=== PATIENT | male | born 1945 | race Caucasian/White ===

== ENCOUNTER → 2017-07-19 | Outpatient (CLI) | payer BC ==
[~2017-07-19] MED LIST: EZET10TA63 PO; OMEG10007 PO; SIMV40TA2 PO
== END | disposition home or self-care (01) ==
LOC: C.RDSM 10:55
PROVIDERS: ATTEND Family Medicine Sports Medicine
DX: M54.5 Low back pain (principal)

== ENCOUNTER → 2017-09-22 | Day surgery (SDC) | payer BC ==
[2017-09-06 07:48] VITALS: Ht 177.8 cm; Wt 109.1 kg
[~2017-09-22] VITALS: Ht 177.8 cm; Wt 109.1 kg
[~2017-09-22] MED LIST changes: +BUPIVACAINE 0.25% 2.5MG/ML PF 10 ML VIAL ONE; +CHOL1000 PO; +GLUC100014 PO; +IOPAMIDOL INJ 61% 15 ML VIAL ONE; +LIDOCAINE HCL 1% MPF 5 ML VIAL ONE; +MULT-506 PO
--- NOTE | 2017-09-22 13:47 | History & Physical Bridge - SC ---
H&P Re-Evaluation Bridge Note: I have examined the patient, reviewed the History & Physical and in the interval since the performance of the History & Physical I have noted the following changes of clinical significance: No changes noted
--- NOTE | 2017-09-22 14:04 | [facility] Post Operative Brief Note ---
Immediate Operative Summary Operative Date Sep 22, 2017. Pre-Operative Diagnosis RIGHT SACROILIITIS Post-Operative Diagnosis RIGHT SACROILIITIS Procedure(s) Performed Right Sacroiliac Joint Injection Surgeon DR. Anatoly CRUZ Electric Organ Assembler Surgeon(s) None Estimated Blood Loss NONE Findings Consistent with Post-Op Diagnosis Specimens NA Drains None Anesthesia Type Local Complication(s) none Disposition Disposition:
--- NOTE | 2017-09-22 14:05 | Discharge Instructions ---
Discharge Instructions Date of Service Sep 22, 2017. Visit Reason for Visit: Sacroiliitis Discharge Discharge Diagnosis / Problem: Low back pain Discharge Goals Goal(s): Decrease discomfort, Improve function Activity Recommendations Activity Limitations: resume your previous activity Anesthesia . Post Anesthesia Instructions: If you have had General Anesthesia or IV Sedation: * Do not drive today. * Resume driving when surgeon permits. * Do not make important decisions or sign legal documents today. * Call surgeon for: 1. Temperature elevations greater than 101 degrees F. 2. Uncontrollable pain. 3. Excessive bleeding. 4. Persistent nausea and vomiting. 5. Medication intolerance (nausea, vomiting or rash). * For nausea and vomiting use only clear liquids such as: tea, soda, bouillon until nausea subsides, then gradually increase diet as tolerated. * If you have any concerns or questions, call your surgeon's office. If physician is unavailable and it is an emergency, call 911 or go to the nearest emergency room. . Diet Recommendations Recommended Home Diet: resume previous diet Procedures Procedures Performed: Right Sacroiliac Joint Injection Pending Studies Studies pending at discharge: no Medical Emergencies . Who to Call and When: Medical Emergencies: If at any time you feel your situation is an emergency, please call 911 immediately. . Non-Emergent Contact Non-Emergency issues call your: Specialist . . "Provider Documentation" section prepared by Torres Hobson. .
[2017-09-22 14:06] VITALS: TEMP 36.7
[2017-09-22 14:29] VITALS: BP 155/89; PULSE 83; O2SAT 94
--- NOTE | 2017-09-22 14:38 | OPERATIVE REPORT ---
DATE OF OPERATION: 09/22/2017 PREOPERATIVE DIAGNOSIS: Right sacroiliitis. POSTOPERATIVE DIAGNOSIS: Same. PROCEDURE: Right sacroiliac joint injection under fluoroscopic guidance. INDICATIONS: The patient is a 72-year-old white male that has localizing pain to the right SI joint following a misstep on a carpet on a hardware floor. He denies any radiating pain down the leg and his examination was consistent with a sacroiliac etiology. He presents today for an SI joint injection under fluoroscopic guidance. PHYSICAL EXAMINATION: Pleasant male seated comfortably. He has point tenderness to palpation of the right SI joint. Unable to do a Eddie maneuver secondary to tightness of the abductor muscle. Positive sacral compression maneuver. Negative seated straight leg raise. CONSENT: Verbal and written consent was obtained from the patient. Risks and benefits were reviewed. Risks include, but are not limited to abscess and allergic reaction. The patient wishes to proceed. DESCRIPTION OF PROCEDURE: The patient was taken back into the special procedures room of [facility], where he was maintained in a prone position. Backside was cleansed with Betadine x3 and a dry sterile dressing was applied. Fluoroscope was used to identify the right SI joint and the overlying skin was anesthetized with 3 mL of lidocaine 1% with a 25-gauge 1-1/2 inch needle. A 25-gauge 3-1/2 inch spinal needle was easily directed into the joint. Isovue-300 contrast confirmed intra-articular uptake, 0.25 mL or less was utilized. He then underwent injection after negative aspiration of 40 mg of Depo-Medrol and 1.5 mL of bupivacaine. Injection was well tolerated. DISPOSITION: 1. The patient was taken out into the discharge recovery area, where he will be discharged home once discharge criteria have been met. 2. Follow up in the [facility] office in 2-4 weeks. I attest to the content of the Intraoperative Record and any orders documented therein. Any exception s are noted below.
== END | disposition home or self-care (01) ==
LOC: X.SURG 12:59
PROVIDERS: ATTEND Physical Medicine & Rehabilitation
DX: M46.1 Sacroiliitis, not elsewhere classified (principal)

== ENCOUNTER 2020-12-13 05:04 | Observation (INO) ==
--- NOTE | 2020-12-13 05:40 | Emergency Department Note ---
Impression & Plan Substernal chest pain ED Provider Note NAME: SINAI SIDDIQUI AGE: 75 SEX: M ARRIVES VIA: Ambulance INFORMANT: Patient ED PROVIDER(S): Syl Flor DO CHIEF COMPLAINT: Chest pain PLAN: [facility] Condition: Stable MEDICAL DECISION MAKING: This is a 75-year-old male patient who awoke at 3 AM with some substernal chest discomfort. The patient describes it as difficulty taking a deep breath because it increases his chest discomfort. He has never had pain like this in the past. EKG was unremarkable and troponin was negative. Chest x-ray showed no evidence of widened mediastinum. CT of the chest was negative for aortic dissection or pulmonary emboli. The patient had gotten no relief of the chest discomfort with sublingual nitroglycerin by EMS. I tried a GI cocktail with the patient which also gave no relief of his discomfort. He did finally get some relief with IV Pepcid and IV fentanyl. I discussed the case with the [facility] and they will evaluate the patient for admission to the hospital for further work-up of this chest discomfort. Triage Nursing notes reviewed and agree with them. Prior medical records reviewed Vital Signs: reviewed and remarkable for hypertension Differential diagnosis: STEMI, GERD, aortic dissection, costochondritis ER treatment provided: GI cocktail IV Pepcid IV fentanyl Diagnostics interpreted by me: ECG: Normal sinus rhythm at 92 with a first-degree AV block. There is no ST segment elevation or signs of ischemia. There is no ectopy. QTC is 4 and 37 ms. Cardiac Monitoring: Normal sinus rhythm at a rate of 90 Laboratory studies: See below Imaging studies: As per my interpretation Portable chest x-ray: No widened mediastinum or significant pulmonary findings. CTA chest: The ascending aortic arch is upper limits of normal measuring 3.8 cm in d iameter. No dissection is seen. The great vessel origins are mildly calcified with no stenosis or dissection. The ascending thoracic aorta is unremarkable. The pulmonary arterial tree is well opacified with contrast. No pulmonary emboli are identified. Small amount of bibasilar subsegmental atelectasis is present. No pneumothorax or pleural effusion is seen. No focal consolidation is identified. The heart is not enlarged. Moderate coronary calcification is present. No pericardial effusion. Mild degenerative changes throughout the thoracic spine. No acute fracture or subluxation. CTA abdomen and pelvis with contrast: There has been previous stent graft repair of abdominal aortic aneurysm with no significant residual aneurysm sac. The graft is widely patent. Mild calcification of widely patent celiac and superior mesenteric arteries. The renal arteries demonstrate approximately 30% stenosis bilaterally but are patent. Bowel loops are nondilated. There is moderate to severe diverticulosis of the left and sigmoid colon. The appendix is normal. No acute inflammatory changes are seen involving the bowel. The liver, gallbladder, pancreas, spleen, adrenal glands and kidneys appear within normal limits. Incidental note is made of fat-containing 5.3 cm umbilical hernia. Mild to moderate degenerative changes in the lower lumbar spine. No acute fracture or subluxation. Consultation(s): None HPI: 75/M arrives for evaluation of substernal chest pain. The patient awoke with pain in the middle of his chest around 3 AM this morning that seem to worsen with deep breathing. There was no associated nausea, vomiting or d iaphoresis. The patient called EMS. Upon their arrival, they administered sublingual nitroglycerin with no relief of his symptoms. Patient denies ever having pain like this in the past. ROS: See above HPI for pertinent positives & negatives. A total of 10 systems reviewed and were otherwise negative. PAST MEDICAL HISTORY:See Below PAST SURGICAL HISTORY:See Below FAMILY HISTORY:See Below SOCIAL HISTORY:See Below HOME MEDICATIONS:See list ALLERGIES:See list VITALS:See Below PHYSICAL EXAMINATION: HEENT: Head - normocephalic and atraumatic Pupils are equal, round, and reactive to light. Extraocular eye muscles are intact, and sclera are anicteric. Nose - moist nasal mucosa without discharge. Mouth - moist buccal mucosa. Oropharynx is nonerythematous and there is no tonsillar exudate or edema noted. Neck: Supple; no JVD, nuchal rigidity, cervical lymphadenopathy, or auscultated bruits. Heart: Regular rate and rhythm. There is a normal S1 and S2 with no murmurs, clicks, or gallops appreciated. Lungs: Clear to auscultation bilaterally with no wheezes, rales, or rhonchi. Abdomen: Soft, completely nontender, nondistended, with good bowel sounds. There are no palpable pulsatile masses or hepatosplenomegaly. There is no guarding, rigidity, or rebound noted. Extremities: 1+ edema. There are easily palpable peripheral pulses. Skin: warm and dry with good turgor and no rashes. ED COURSE: Times/Reassessments: 0510: The patient was evaluated in a 3. A complete history and physical was performed. An order was placed for continuous cardiac monitoring. The patient is in a normal sinus rhythm at a rate of 90. A twelve-lead EKG was obtained as described above. Patient had a portable chest x-ray which showed no evidence of mediastinum. The patient was a hard stick and they had a difficult time obtaining an IV lock. Finally an IV lock was obtained and labs were drawn as above. He went for CT angiogram of the abdomen/pelvis and chest to rule out dissection of the aorta. 0720:I reviewed the results of the CT with the patient. The patient was given a GI cocktail for his substernal chest discomfort. This offered no relief to the discomfort in his chest. The patient was then given IV fentanyl and IV Pepcid. He remains hemodynamically stable. Covid testing was obtained. I discussed the case with Dr. Canchola and he will evaluate for further management. Syl Flor, DO Past Med/Surg History Medical History BPH (benign prostatic hyperplasia) Erectile dysfunction Hyperlipidemia Sleep apnea TRIED AND UNABLE TO USE Ventral hernia Surgical History History of abdominal aortic aneurysm (AAA) repair 08/2013 Hx of colonoscopy Hx of foot surgery LEFT ACHILLES Family History Sister Family history of breast cancer Mother Family history of breast cancer Social History Smoking Status: Former smoker Second Hand Exposure: No; Do You Dip or Chew Tobacco: No; Tobacco Cessation Education Requested by Patient: No Hx Alcohol Use: Yes Alcohol type: wine Hx Substance Use: No Preferred Language: Malawian Communication Ability: Effective Licensed Retail Supervisor Required: No Beliefs That Will Affect Care: None Current Living Situation: Spouse Other Information That Helps Us Care for You: No Feels Safe at Home: Yes Safety Concerns: Feels Safe At This Time Assistive Devices: Glasses Allergies Allergies Allergy/AdvReac Type Severity Reaction Status Date / Time aspirin Allergy Intermediate RASH Verified 12/13/20 08:09 ibuprofen Allergy Intermediate RASH Verified 12/13/20 08:09 naproxen Allergy Mild RASH Verified 12/13/20 08:09 bupropion Allergy Unknown "CAN'T Verified 12/13/20 08:09 RECALL" atorvastatin AdvReac Intermediate ACHES Verified 12/13/20 08:09 lovastatin AdvReac Intermediate ACHES Verified 12/13/20 08:09 Home Meds Home Medications Medication Instructions Recorded Confirmed omega-3 fatty acids 1,000 mg 1,000 mg PO QAM 04/11/19 12/13/20 capsule vitamins A,C,M-gtcg-tlpfid 14,320 1 cap PO BID 04/11/19 12/13/20 unit-226 mg-200 unit capsule zinc 50 mg tablet 50 mg PO QAM 04/11/19 12/13/20 cholecalciferol (vitamin D3) 50 4,000 units PO QAM tab 04/16/19 12/13/20 mcg (2,000 unit) tablet ezetimibe 10 mg tablet 10 mg PO QAM tab 04/16/19 12/13/20 simvastatin 40 mg tablet 40 mg PO QAM tab 04/16/19 12/13/20 Previous Rx's Medication Instructions Recorded AndroGel 20.25 mg/1.25 gram (1.62 3 pump TOP DAILY 90 Days #450 gm NS 06/10/ %) transdermal gel pump Results & Data (ED) Vital Signs Vital Signs - 24 hr 12/13/20 08:20 12/13/20 08:40 Pulse Rate [Right Finger] 102 H 94 H Respiratory Rate 24 20 Blood Pressure [Right Arm] 150/101 H 141/94 H Blood Pressure Mean [Right Arm] 117 109 Pulse Oximetry 95 95 Oxygen Delivery Method Nasal Cannula Room Air Oxygen Flow Rate 3 Laboratory Data Result diagrams: 12/14/20 03:33 12/14/20 03:33 Lab Results 12/13/20 12/13/20 12/13/20 Range/Units 05:57 05:57 06:00 WBC 14.67 H (4.8-10.8) K/uL RBC 4.99 (4.7-6.1) M/uL Hgb 15.6 (14.0-18.0) g/dL Hct 45.8 (42-52) % MCV 91.8 (80-100) fL MCH 31.3 (25-34) pg MCHC 34.1 (32-36) g/dL RDW Std Deviation 46.8 H (36.4-46.3) fL RDW Coeff of Mannie 13.9 (11.5-14.5) % Plt Count 197 (130-400) K/uL MPV 9.3 (7.4-10.4) fL Immature Gran % (Auto) 0.2 % Neut % (Auto) 89.0 % Lymph % (Auto) 4.6 % [place] % (Auto) 6.1 % Eos % (Auto) 0.1 % Baso % (Auto) 0.0 % Neut # (Auto) 13.06 H (1.4-6.5) K/uL Lymph # (Auto) 0.67 L (1.2-3.4) K/uL [place] # (Auto) 0.90 H (0.11-0.59) K/uL Eos # (Auto) 0.01 (0-0.5) K/uL Baso # (Auto) 0.00 (0-0.2) K/uL Immature Gran # (Auto) 0.03 H (0.00-0.02) K/uL Sodium 139 (136-145) mmol/L Potassium 3.9 (3.5-5.1) mmol/L Chloride 105 (98-107) mmol/L Carbon Dioxide 29 (21-32) mmol/L Anion Gap 5.0 (3-11) BUN 15 (7-18) mg/dl Creatinine 0.78 (0.6-1.4) mg/dl Est Cr Clr Drug Dosing 102.7 ml/min Est GFR ( Amer) 102.3 Est GFR (Non-Af Amer) 88.3 BUN/Creatinine Ratio 19.5 (10-20) Glucose 131 H (70-99) mg/dl Calcium 9.6 (8.5-10.1) mg/dl Total Bilirubin 0.6 (0.2-1) mg/dl AST 15 (15-37) U/L ALT 32 (12-78) U/L Alkaline Phosphatase 63 (45-117) U/L Troponin I < 0.015 (0-0.045) ng/ml Total Protein 7.6 (6.4-8.2) gm/dl Albumin 3.8 (3.4-5.0) gm/dl Globulin 3.8 (2.5-4.0) gm/dl Albumin/Globulin Ratio 1.0 (0.9-2) Lipase 521 H (73-393) U/L Procalcitonin < 0.05 (0-0.5) ng/ml COVID-19 Eval Order SARS-CoV-2 (PCR) (Negative) Influenza Type A (PCR) (Neg) Influenza Type B (PCR) (Neg) RSV (RT-PCR) (Neg) 12/13/20 12/13/20 Range/Units 06:38 06:38 WBC (4.8-10.8) K/uL RBC (4.7-6.1) M/uL Hgb (14.0-18.0) g/dL Hct (42-52) % MCV (80-100) fL MCH (25-34) pg MCHC (32-36) g/dL RDW Std Deviation (36.4-46.3) fL RDW Coeff of Mannie (11.5-14.5) % Plt Count (130-400) K/uL MPV (7.4-10.4) fL Immature Gran % (Auto) % Neut % (Auto) % Lymph % (Auto) % [place] % (Auto) % Eos % (Auto) % Baso % (Auto) % Neut # (Auto) (1.4-6.5) K/uL Lymph # (Auto) (1.2-3.4) K/uL [place] # (Auto) (0.11-0.59) K/uL Eos # (Auto) (0-0.5) K/uL Baso # (Auto) (0-0.2) K/uL Immature Gran # (Auto) (0.00-0.02) K/uL Sodium (136-145) mmol/L Potassium (3.5-5.1) mmol/L Chloride (98-107) mmol/L Carbon Dioxide (21-32) mmol/L Anion Gap (3-11) BUN (7-18) mg/dl Creatinine (0.6-1.4) mg/dl Est Cr Clr Drug Dosing ml/min Est GFR ( Amer) Est GFR (Non-Af Amer) BUN/Creatinine Ratio (10-20) Glucose (70-99) mg/dl Calcium (8.5-10.1) mg/dl Total Bilirubin (0.2-1) mg/dl AST (15-37) U/L ALT (12-78) U/L Alkaline Phosphatase (45-117) U/L Troponin I (0-0.045) ng/ml Total Protein (6.4-8.2) gm/dl Albumin (3.4-5.0) gm/dl Globulin (2.5-4.0) gm/dl Albumin/Globulin Ratio (0.9-2) Lipase (73-393) U/L Procalcitonin (0-0.5) ng/ml COVID-19 Eval Order CovFluRsv at [facility] SARS-CoV-2 (PCR) NEGATIVE (Negative) Influenza Type A (PCR) Negative (Neg) Influenza Type B (PCR) Negative (Neg) RSV (RT-PCR) Negative (Neg) Administered Medications Acetaminophen (Acetaminophen 325 Mg Tab) 650 mg PO Q4H PRN PRN Reason: Pain or Fever Stop: 01/12/21 09:17 Last Admin: 12/13/20 12:32 Dose: 650 mg Documented by: [id number] Heparin Sodium (Porcine) (Heparin Sod 5,000 Unit/0.5 Ml Vial) 5,000 units SQ Q8 ROBERT Stop: 01/12/21 13:59 Last Admin: 12/14/20 06:08 Dose: 5,000 units Documented by: [id number] Admin: 12/13/20 22:05 Dose: 5,000 units Documented by: [id number] Admin: 12/13/20 12:35 Dose: 5,000 units Documented by: [id number] Miscellaneous (Androgel~Order Awaiting Action) 1 ea N/A QS [facility] Stop: 01/12/21 15:59 Last Admin: 12/13/20 23:04 Dose: Not Given Documented by: [id number] Admin: 12/13/20 13:10 Dose: Not Given Documented by: [id number] Morphine Sulfate (Morphine Sulfate 2 Mg/Ml Carp) 1 mg IV Q4H PRN PRN Reason: Pain Stop: 12/27/20 19:30 Last Admin: 12/13/20 20:39 Dose: 1 mg Documented by: [id number] Multivitamins/Minerals (Cerovite Adv Formula Tab) 1 tab PO BID ROBERT Stop: 01/12/21 20:59 Last Admin: 12/13/20 20:34 Dose: Not Given Documented by: [id number] Nitroglycerin (Nitroglycerin Sl 0.4 Mg/Tab Tab) 0.4 mg SL UD PRN PRN Reason: Chest Pain Stop: 01/12/21 09:17 Last Admin: 12/13/20 12:31 Dose: 0.4 mg Documented by: [id number] Ondansetron HCl (Ondansetron Inj 2 Mg/Ml 2 Ml Vial) 4 mg IV Q6H PRN PRN Reason: Nausea Stop: 01/12/21 09:17 Last Admin: 12/13/20 12:35 Dose: 4 mg Documented by: [id number] Discontinued Medications Al Hydrox/Mg Hydrox/Simethicone (Gi Cocktail Ed Use) Confirm Administered Dose 1 dose PO .STK-MED ONE Stop: 12/13/20 07:28 Last Admin: 12/13/20 07:30 Dose: 1 dose Documented by: [id number] Fentanyl Citrate (Fentanyl Citrate 100 Mcg/2 Ml Vial) 50 mcg IV NOW STA Stop: 12/13/20 07:55 Last Admin: 12/13/20 08:21 Dose: 50 mcg Documented by: [id number] Famotidine (Pepcid 20mg Iv Push) 20 mg in 5 mls @ 2.5 mls/min IV NOW STA Stop: 12/13/20 08:07 Last Admin: 12/13/20 08:22 Dose: 2.5 mls/min Documented by: [id number] Ioversol (Optiray 350 500ml) 110 ml IV ONCE ONE Stop: 12/13/20 05:54 Last Admin: 12/13/20 05:54 Dose: 110 ml Documented by: [id number] Morphine Sulfate (Morphine Sulfate 2 Mg/Ml Carp) 1 mg IV NOW STA Stop: 12/13/20 12:48 Last Admin: 12/13/20 13:17 Dose: 1 mg Documented by: [id number] Nitroglycerin (Nitroglycerin Sl 0.4 Mg/Tab Tab) 0.4 mg SL NOW STA Stop: 12/13/20 19:32 Last Admin: 12/13/20 20:33 Dose: Not Given Documented by: [id number] Imaging Data Radiologist's Impression: Chest X-Ray 12/13/20 05:16 XR chest 1V portable CLINICAL HISTORY: Chest pain. COMPARISON STUDY: Chest radiograph November 23, 2016. FINDINGS: Lung volumes are normal. Lungs are clear. There is no pneumothorax or pleural effusion. Cardiac size is normal. Mediastinal contours are normal. There is no evidence for pulmonary edema. IMPRESSION: No acute cardiopulmonary findings. ACT 112: Negative or not required by law. Electronically signed by: Pedro Gonzalez M.D. 12/13/2020 7:19 AM Chest CTA 12/13/20 05:22 CT ANGIOGRAPHY OF THE CHEST DISSECTION PROTOCOL CLINICAL HISTORY: Chest and back pain. Evaluate for aortic dissection. COMPARISON STUDY: Chest radiograph December 13, 2020 and November 23, 2016. TECHNIQUE: Before and following the IV administration of 110 mL of Optiray, helical axial images of the chest were obtained. Maximal intensity projections and sagittal and coronal reformats were viewed on an independent 3D workstation. IV contrast was administered without complication. Automated exposure control was utilized for the study. A dose lowering technique was utilized adhering to the principles of ALARA. CT DOSE: 3297.69 mGy.cm FINDINGS: No intramural hematoma or thoracic aortic dissection is noted. Dilatation of the ascending aorta, measuring 4.4 cm at the level of the main pulmonary artery is noted. There is mild cardiomegaly. There is extensive coronary artery calcification. No pericardial effusion is noted. There is no pneumothorax or pleural effusion. There is no consolidation to suggest pneumonia. Mild emphysema is present. Linear and groundglass opacities reflect atelectasis. CTA of the abdomen and pelvis will be reported separately. IMPRESSION: 1. No thoracic aortic dissection. 2. No acute process within the chest. 3. Dilatation of the ascending aorta, measuring 4.4 cm at the level of the main pulmonary artery. 4. Mild emphysema. ACT 112: Negative or not required by law. Electronically signed by: Pedro Gonzalez M.D. 12/13/2020 7:26 AM Discharge Plan Visit Data Chief Complaint: Chest Pain Stated Complaint: CHEST PAIN ED Provider: Syl Flor Discharge Problem: Substernal chest pain Patient Disposition: Admitted As Inpatient Discharge Instructions Interventions: ED Discharge Assessment Last Done: 12/13/20 11:40
[2020-12-13] MEDS ORDERED: OPTIRAY 350 500ml IV ONE (05:53)
[2020-12-13 06:13] LABS: Eosinophils # (auto) 0.01 K/uL (0-0.5); Eosinophils % (auto) 0.1 %; Hematocrit (blood only) 45.8 % (42-52); Hemoglobin 15.6 g/dL (14.0-18.0); Immature Granulocytes # (auto) 0.03 K/uL (0.00-0.02); Immature Granulocytes % (auto) 0.2 %; Lymphocytes # (auto) 0.67 K/uL (1.2-3.4); Lymphocytes % (auto) 4.6 %; Mean Corpuscular Hemoglobin 31.3 pg (25-34); Mean Corpuscular Hgb Conc 34.1 g/dL (32-36); Mean Corpuscular Volume 91.8 fL (80-100); Mean Platelet Volume 9.3 fL (7.4-10.4); Monocytes % (auto) 6.1 %; Neutrophils # (auto) 13.06 K/uL (1.4-6.5); Platelet Count 197 K/uL (130-400); RDW Coefficient of Variation 13.9 % (11.5-14.5); RDW Standard Deviation 46.8 fL (36.4-46.3); Red Blood Count 4.99 M/uL (4.7-6.1); White Blood Count 14.67 K/uL (4.8-10.8)
[2020-12-13 06:25] LABS: Alanine Aminotransferase 32 U/L (12-78); Albumin Level 3.8 gm/dl (3.4-5.0); Aspartate Aminotransferase 15 U/L (15-37); BUN Creatinine Ratio 19.5 (10-20); Blood Urea Nitrogen 15 mg/dl (7-18); Calcium 9.6 mg/dl (8.5-10.1); Carbon Dioxide 29 mmol/L (21-32); Chloride 105 mmol/L (98-107); Creatinine Clr Calc Pharmacy 102.7 ml/min; Est GFR (African American) 102.3; Est GFR (Non-African American) 88.3; Glucose 131 mg/dl (70-99); Lipase 521 U/L (73-393); Potassium 3.9 mmol/L (3.5-5.1); Sodium 139 mmol/L (136-145)
[2020-12-13 06:30] LABS: Alkaline Phosphatase 63 U/L (45-117); Bilirubin,Total 0.6 mg/dl (0.2-1); Globulin 3.8 gm/dl (2.5-4.0); Total Protein 7.6 gm/dl (6.4-8.2); Troponin I < 0.015 ng/ml (0-0.045)
--- NOTE | 2020-12-13 07:20 | XRay Report ---
XR chest 1V portable CLINICAL HISTORY: Chest pain. COMPARISON STUDY: Chest radiograph November 23, 2016. FINDINGS: Lung volumes are normal. Lungs are clear. There is no pneumothorax or pleural effusion. Car diac size is normal. Mediastinal contours are normal. There is no evidence for pulmonary edema. IMPRESSION: No acute cardiopulmonary findings. ACT 112: Negative or not required by law. Electronically signed by: Pedro Gonzalez M.D. 12/13/2020 7:19 AM
[2020-12-13 07:24] LABS: Influenza A virus by PCR Negative (Neg); Influenza B virus by PCR Negative (Neg); RSV by PCR Negative (Neg); SARS CoV2 RNA(COVID-19) InHosp NEGATIVE (Negative)
[2020-12-13] MEDS ORDERED: GI COCKTAIL ED USE PO ONE (07:27)
--- NOTE | 2020-12-13 07:28 | CT Scan Report ---
CT ANGIOGRAPHY OF THE CHEST DISSECTION PROTOCOL CLINICAL HISTORY: Chest and back pain. Evaluate for aortic dissection. COMPARISON STUDY: Chest radiograph December 13, 2020 and November 23, 2016. TECHNIQUE: Before and following the IV administration of 110 mL of Optiray, helical axial images of t he chest were obtained. Maximal intensity projections and sagittal and coronal reformats were viewed on an independent 3D workstation. IV contrast was administered without complication. Automated exp osure control was utilized for the study. A dose lowering technique was utilized adhering to the [facility] DEVI. CT DOSE: 3297.69 mGy.cm FINDINGS: No intramural hematoma or thoracic aortic dissection is noted. Dilatation of the ascending aorta, measuring 4.4 cm at the level of the main pulmonary artery is noted. There is mild cardiomega ly. There is extensive coronary artery calcification. No pericardial effusion is noted. There is no p neumothorax or pleural effusion. There is no consolidation to suggest pneumonia. Mild emphysema is pr esent. Linear and groundglass opacities reflect atelectasis. CTA of the abdomen and pelvis will be re ported separately. IMPRESSION: 1. No thoracic aortic dissection. 2. No acute process within the chest. 3. Dilatation of the ascending aorta, measuring 4.4 cm at the level of the main pulmonary artery. 4. Mild emphysema. ACT 112: Negative or not required by law. Electronically signed by: Pedro Gonzalez M.D. 12/13/2020 7:26 AM
--- NOTE | 2020-12-13 07:50 | CT Scan Report ---
CT angio abd pelvis wo/w con CLINICAL HISTORY: Chest and back pain. Evaluate for dissection. TECHNIQUE: Unenhanced and arterial phase imaging of the abdomen and pelvis was performed. Intravenous injection of 110 cc of Optiray 320 IV was uneventful. Sagittal and coronal reconstructions were view ed as well as maximal intensity projections on an independent 3-D workstation. Automated exposure con trol was utilized for the study. A dose lowering technique was utilized adhering to the principles o f ALARA. COMPARISON STUDY: CT of the abdomen and pelvis April 24, 2014. FINDINGS: Note is made of a bifurcated aortoiliac stent graft. Aneurysm sac has decreased in size sin ce CT of April 24, 2014. No evidence for rupture or dissection. No endoleak is identified. The bi lateral iliac limbs are patent. There is moderate atherosclerotic plaque within the branch vessels. T here is mild stenosis of the proximal left renal artery. The celiac axis and superior mesenteric yanick ry are patent. Bilateral common femoral arteries are patent. Arterial phase images of the liver, sple en, adrenal glands and pancreas are unremarkable. Note is made of several right renal cysts. There is no hydronephrosis. There is extensive colonic diverticulosis without evidence for acute diverticulit is. Fat-containing umbilical hernia is present. There are no suspicious lesions or acute fractures wi thin visualized skeletal structures. There is no abdominal lymphadenopathy. IMPRESSION: 1. Expected findings following placement of a bifurcated aortoiliac stent graft. No dissection. No ru pture. No endoleak identified. 2. No acute process within the abdomen or pelvis. 3. Colonic diverticulosis without evidence for acute diverticulitis. ACT 112: Negative or not required by law. Electronically signed by: Pedro Gonzalez M.D. 12/13/2020 7:49 AM
[2020-12-13] MEDS ORDERED: fentaNYL citrate 100 MCG/2 ML VIAL IV STA (07:54)
[2020-12-13] MEDS ORDERED: FAMOTIDINE 20MG IV PUSH 20 MG/5 ML SYR IV STA (08:06)
[2020-12-13] MEDS ORDERED: NITROGLYCERIN SL 0.4 MG/TAB TAB SL PRN (09:18)
[2020-12-13] MEDS ORDERED: ONDANSETRON INJ 2 MG/ML 2 ML VIAL IV PRN (09:18)
[2020-12-13] MEDS ORDERED: ACETAMINOPHEN 325 MG TAB PO PRN (09:18)
--- NOTE | 2020-12-13 09:53 | History & Physical Report ---
Date of Service December 13, 2020 Assessment & Plan (1) Chest pain: 75 yo male who is admitted with chest pain. Patient has some typical features,: pressure like in nature, accompanied by SOB. Atypical: occurred at rest, worse with deep breaths, and improved by lying on side. Will monitor trop x3. Obtain echocardiogram. will consult cardio. CTA was negative for aortic dissection Patient does have elevated WBC. No signs of pneumonia. will monitor. History of Present Illness Primary Care Provider: Case Flower MD Patient is a pleasant 75 yo male who reports PMH described below. He states he was in his usual state of health until 3:00 am this morning where he awoke with substernal pressure like chest pain. He reports pain is better when he lays on his left side. He notices pain worsens with deep breaths. Patient reports that his pain was not relieved by his medications given in the ER. Allergies Allergy/AdvReac Type Severity Reaction Status Date / Time aspirin Allergy Intermediate RASH Verified 12/13/20 08:09 ibuprofen Allergy Intermediate RASH Verified 12/13/20 08:09 naproxen Allergy Mild RASH Verified 12/13/20 08:09 bupropion Allergy Unknown "CAN'T Verified 12/13/20 08:09 RECALL" atorvastatin AdvReac Intermediate ACHES Verified 12/13/20 08:09 lovastatin AdvReac Intermediate ACHES Verified 12/13/20 08:09 Home Medications Medication Instructions Recorded Confirmed Type omega-3 fatty acids 1,000 mg 1,000 mg PO QAM 04/11/19 12/13/20 History capsule vitamins A,C,O-[id number]-psvfhn 14,320 1 cap PO BID 04/11/19 12/13/20 History unit-226 mg-200 unit capsule zinc 50 mg tablet 50 mg PO QAM 04/11/19 12/13/20 History cholecalciferol (vitamin D3) 50 4,000 units PO QAM tab 04/16/19 12/13/20 History mcg (2,000 unit) tablet ezetimibe 10 mg tablet 10 mg PO QAM tab 04/16/19 12/13/20 History simvastatin 40 mg tablet 40 mg PO QAM tab 04/16/19 12/13/20 History AndroGel 20.25 mg/1.25 gram (1.62 3 pump TOP DAILY 90 Days #450 gm NS 06/10/20 12/13/20 Rx %) transdermal gel pump Past Med/Surg History Medical History BPH (benign prostatic hyperplasia) Erectile dysfunction Hyperlipidemia Sleep apnea TRIED AND UNABLE TO USE Ventral hernia Surgical History History of abdominal aortic aneurysm (AAA) repair 08/2013 Hx of colonoscopy Hx of foot surgery LEFT ACHILLES Family History Sister Family history of breast cancer Mother Family history of breast cancer Social History Smoking Status: Former smoker Second Hand Exposure: No; Hx Alcohol Use: Yes Alcohol type: wine Hx Substance Use: No Preferred Language: Uzbek Communication Ability: Effective 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 Beliefs That Will Affect Care: None Current Living Situation: Spouse Feels Safe at Home: Yes Assistive Devices: Glasses Review of Systems Review of Systems: All systems reviewed & are unremarkable except as noted in HPI & below Physical Exam Constitutional: WD/WN, vitals as above well developed and well nourished Eyes: PERRL, conjunctivae normal, anicteric sclerae ENMT: external ear and nose normal, oropharynx normal Neck: trachea midline, no thyromegaly Respiratory: normal respiratory effort, lungs clear to auscultation Cardiovascular: RRR, no murmur, no edema Gastrointestinal (Abdomen): normal bowel sounds, soft, nontender, no hepatosplenomegaly Musculoskeletal: no cyanosis or clubbing, extremities motor strength 5/5 Skin: no rashes, warm and dry Neurologic: PERRL, EOMI, accommodation nl, no face palsy, no dysarthria Psychiatric: A+Ox3, euthymic affect Lymphatic: no cervical or axillary lymphadenopathy Results & Data Results & Data ([facility]) Vital Signs (Past 12 Hours) Vital Signs Temp Pulse Pulse Resp BP BP Pulse Ox 12/13/20 08:40 94 H 20 141/94 H 95 12/13/20 08:20 102 H 24 150/101 H 95 12/13/20 07:08 96 H 24 163/101 H 96 12/13/20 06:30 89 L 12/13/20 06:17 95 H 20 166/90 H 92 12/13/20 05:15 93 12/13/20 05:10 36.9 C 90 20 163/84 H 92 PG Care Time/CCT Total # of Minutes Spent Total Time Spent with Patient: Total time spent is greater than 50% in coordination of care (as documented) at patient's floor/unit and/or counseling patient: Coding Diagnoses Chest pain R07.9
[2020-12-13] MEDS: HEPARIN SOD 5,000 UNIT/0.5 ML VIAL SQ SCH ×2 (12:35→22:05)
[2020-12-13] MEDS ORDERED: MoRPHine SULFATE 2 MG/ML CARP IV STA (12:47)
--- NOTE | 2020-12-13 15:25 | XCELERA ---
[id number]
--- NOTE | 2020-12-13 15:33 | Electrocardiogram Report ---
Test Reason : Blood Pressure : / mmHG Vent. Rate : 092 BPM Atrial Rate : 092 BPM P-R Int : 252 ms QRS Dur : 094 ms QT Int : 354 ms P-R-T Axes : 037 -13 027 degrees QTc Int : 437 ms Sinus rhythm with 1st degree A-V block Cannot rule out Inferior infarct , age undetermined Abnormal ECG When compared with ECG of 11-MAY-1995 13:06, AL interval has increased Confirmed by Cole Ashley ([id number]) on 12/13/2020 3:32:55 PM Referred By: REFERRED SELF Confirmed By:Cole Ashley
[2020-12-13 16:30] LABS: C Reactive Protein 5.46 mg/dl (0-0.29); Troponin I < 0.015 ng/ml (0-0.045)
[2020-12-13 17:44] LABS: Appearance Urine Clear (Clear); Bacteria Urine Automated Negative (Negative); Bilirubin Urine Negative (Negative); Blood Urine 1+ (Negative); Color Urine Dark Yellow; Glucose Urine UA Negative (Negative); Ketones Urine Trace (Negative); Leukocyte Esterase Urine Negative (Negative); Nitrite Urine Negative (Negative); Protein Urine 1+ (Negative); Specific Gravity Urine > 1.045 (1.000-1.030); Urobilinogen Urine Negative (Negative); pH Urine 5.5 (4.5-7.5)
[2020-12-13] MEDS ORDERED: NITROGLYCERIN SL 0.4 MG/TAB TAB SL STA (19:31)
[2020-12-13] MEDS ORDERED: MoRPHine SULFATE 2 MG/ML CARP IV PRN (19:31)
[2020-12-13] MEDS: CEROVITE ADV FORMULA TAB PO SCH (20:34)
[2020-12-14 03:58] LABS: Basophils # (auto) 0.01 K/uL (0-0.2); Basophils % (auto) 0.1 %; Eosinophils # (auto) 0.03 K/uL (0-0.5); Eosinophils % (auto) 0.3 %; Hemoglobin 13.7 g/dL (14.0-18.0); Immature Granulocytes # (auto) 0.02 K/uL (0.00-0.02); Immature Granulocytes % (auto) 0.2 %; Lymphocytes # (auto) 1.14 K/uL (1.2-3.4); Lymphocytes % (auto) 12.9 %; Mean Corpuscular Hemoglobin 30.9 pg (25-34); Mean Corpuscular Hgb Conc 33.4 g/dL (32-36); Mean Corpuscular Volume 92.6 fL (80-100); Mean Platelet Volume 9.2 fL (7.4-10.4); Monocytes # (auto) 1.03 K/uL (0.11-0.59); Monocytes % (auto) 11.7 %; Neutrophils % (auto) 74.8 %; Platelet Count 170 K/uL (130-400); RDW Coefficient of Variation 14.1 % (11.5-14.5); RDW Standard Deviation 47.5 fL (36.4-46.3); Red Blood Count 4.43 M/uL (4.7-6.1); White Blood Count 8.83 K/uL (4.8-10.8)
[2020-12-14 04:18] LABS: Albumin Level 3.2 gm/dl (3.4-5.0); Calcium 8.7 mg/dl (8.5-10.1); Est GFR (Non-African American) 89.7; Potassium 3.8 mmol/L (3.5-5.1)
[2020-12-14 04:22] LABS: Bilirubin Direct 0.2 mg/dl (0-0.2); Bilirubin,Total 0.8 mg/dl (0.2-1); Globulin 3.3 gm/dl (2.5-4.0); Total Protein 6.5 gm/dl (6.4-8.2)
[2020-12-14] MEDS: HEPARIN SOD 5,000 UNIT/0.5 ML VIAL SQ SCH (06:08)
[2020-12-14] MEDS ORDERED: ZINC SULFATE 220 MG CAPSULE PO SCH (09:00)
[2020-12-14] MEDS ORDERED: OMEGA-3 (PURIFIED FISH OIL) 1 GM CAP PO SCH (09:00)
[2020-12-14] MEDS ORDERED: CHOLECALCIFEROL 1,000 UNITS 25 MCG TAB PO SCH (09:00)
[2020-12-14] MEDS ORDERED: SIMVASTATIN 40 MG TAB PO SCH (09:00)
[2020-12-14] MEDS ORDERED: EZETIMIBE 10 MG TABLET PO SCH (09:00)
[2020-12-14] MEDS: CEROVITE ADV FORMULA TAB PO SCH (09:23)
--- NOTE | 2020-12-14 11:52 | Electrocardiogram Report ---
Test Reason : Blood Pressure : / mmHG Vent. Rate : 088 BPM Atrial Rate : 088 BPM P-R Int : 260 ms QRS Dur : 094 ms QT Int : 362 ms P-R-T Axes : 056 007 059 degrees QTc Int : 438 ms Sinus rhythm with 1st degree A-V block Otherwise normal ECG When compared with ECG of 13-DEC-2020 05:10, Criteria for Inferior infarct are no longer Present Confirmed by Cole Ashley ([id number]) on 12/14/2020 11:52:15 AM Referred By: REFERRED SELF Confirmed By:Cole Ashley
== END 2020-12-14 12:41 | disposition home or self-care (01) ==
LOC: 2N 05:04 → ED 05:04 → 2N 11:40